=== PATIENT | female | born 1985 | race Caucasian/White ===

== ENCOUNTER 2019-08-03 17:22 | Day surgery (SDC) | payer BC ==
[2019-08-03] MEDS ORDERED: Ondansetron 4 MG/2 ML SDV IVPUSH ONE (18:26)
[2019-08-03] MEDS ORDERED: HYDROmorphone 0.5 MG/0.5 ML Syringe IVPUSH ONE ×2 (18:26→20:35)
[2019-08-03] MEDS ORDERED: Sodium Chloride 0.9% 1,000 ML IV SCH ×2 (18:30→23:00)
--- NOTE | 2019-08-03 18:36 | EDM.PDOC ---
ED HPI GENERAL MEDICAL PROBLEM - General Chief Complaint: Abdominal Pain Stated Complaint: VOMITING AND UPPER ABD PAIN Time Seen by Provider: 08/03/19 18:25 Source of Information: Reports: Patient, RN Notes Reviewed History Limitations: Reports: No Limitations - History of Present Illness INITIAL COMMENTS - FREE TEXT/NARRATIVE: Patient is a 33-year-old female who presents to the ED for the evaluation of periumbilical pain. She states that this pain started this morning, and started around her bellybutton, she says throughout the day it has slowly started to settle into the right lower abdomen, she notes that she has had nausea and vomiting this morning, she states that this relieves the pain for a small amount of time but then it comes straight back. She states that walking does increase the pain in her abdomen. She states that the pain is never really gone away has always been there kind of a dull ache with sharp stabs at times. The patient states she hasn't kept any food down today at all, her last meal was last night at around 7 PM. She tried to take some Pepto-Bismol this morning, but subsequently threw this up. The patient did have a good bowel movement this morning and also one diarrhea type bowel movement. The patient further notes that she is on her menses at this time. Of note the patient does have an iodine allergy, and when asked about this she states that she got a rash when she was a child and she also states that she's had a CT in the past done with contrast and she believes this caused no problems. The patient denies any chest pain or shortness of breath, and states she's had hot and cold flashes but has not really taken her temperature at home, she is afebrile at time of ER presentation. Patient denies any sort of abdominal surgeries. 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 History: Reports: Other DIRECTOR OF BROADCAST History: hx shoulder dystocia with 4th degree laceration with 1st baby Psychiatric History: Reports: Anxiety Endocrine/Metabolic History: Reports: Hypothyroidism - Past Surgical History Respiratory Surgical History: Reports: None Endocrine Surgical History: Reports: None Social & Family History - Family History Family Medical History: Noncontributory - Tobacco Use Smoking Status *Q: Never Smoker Second Hand Smoke Exposure: No - Caffeine Use Caffeine Use: Reports: Soda - Recreational Drug Use Recreational Drug Use: No ED ROS GENERAL - Review of Systems Review Of Systems: See Below Constitutional: Reports: Chills, Decreased Appetite, Other (hot flashes) Respiratory: Denies: Shortness of Breath Cardiovascular: Denies: Chest Pain Endocrine: Reports: No Symptoms GI/Abdominal: Reports: Abdominal Pain (Periumbilical and RLQ), Diarrhea, Nausea , Vomiting : Reports: No Symptoms Musculoskeletal: Reports: No Symptoms Skin: Reports: No Symptoms Neurological: Reports: No Symptoms Psychiatric: Reports: No Symptoms Hematologic/Lymphatic: Reports: No Symptoms ED EXAM, GI/ABD - Physical Exam Exam: See Below Exam Limited By: No Limitations General Appearance: Alert, WD/WN, No Apparent Distress Eyes: Bilateral: Normal Appearance Ears: Normal External Exam Nose: Normal Inspection Throat/Mouth: Normal Inspection Head: Atraumatic, Normocephalic Neck: Normal Inspection, Supple, Non-Tender, Full Range of Motion Respiratory/Chest: No Respiratory Distress, Lungs Clear, Normal Breath Sounds, No Accessory Muscle Use, Chest Non-Tender Cardiovascular: Normal Peripheral Pulses, Regular Rate, Rhythm, No Murmur GI/Abdominal Exam: Normal Bowel Sounds, Soft, No Organomegaly, No Distention, No Mass, Tender (McBurney point is positive. Pt has tenderness with palpation of RLQ) Extremities: Normal Inspection, Normal Capillary Refill Neurological: Alert, Oriented, Normal Cognition, No Motor/Sensory Deficits Psychiatric: Normal Affect, Normal Mood Skin Exam: Warm, Dry, Intact, Normal Color, No Rash Course - Vital Signs Last Recorded V/S: Last Vital Signs Temp 98.7 F 08/03/19 17:34 Pulse 73 08/03/19 17:34 Resp 12 08/03/19 17:34 BP 110/71 08/03/19 17:34 Pulse Ox 98 08/03/19 17:34 - Orders/Labs/Meds Orders: Active Orders 24 hr Category Date Time Status Admission Status [Patient Status] [ADT] Routine ADT 08/03/19 21:33 Ordered Notify Provider Consults [RC] ASDIRECTED Care 08/03/19 21:33 Ordered Consult to Physician [CONS] Urgent Cons 08/03/19 21:32 Ordered CULTURE URINE [RM] Routine Lab 08/03/19 19:59 Ordered Ertapenem [INVanz] 1 gm Med 08/03/19 21:31 Ordered Sodium Chloride 0.9% [Normal Saline] 50 ml IV ONETIME Sodium Chloride 0.9% [Normal Saline] 1,000 ml Med 08/03/19 18:30 Ordered IV ASDIRECTED Sodium Chloride 0.9% [Saline Flush] Med 08/03/19 19:30 Active 10 ml FLUSH ASDIRECTED Medication Orders Sodium Chloride (Normal Saline) 1,000 mls @ 999 mls/hr IV ASDIRECTED MATTEO Last Admin: 08/03/19 19:03 Dose: 999 mls/hr Ertapenem 1 gm/ Sodium (Chloride) 50 mls @ 100 mls/hr IV ONETIME ONE Stop: 08/03/19 22:00 Sodium Chloride (Saline Flush) 10 ml FLUSH ASDIRECTED [facility] Last Admin: 08/03/19 20:55 Dose: 10 ml Labs: Laboratory Tests 08/03/19 08/03/19 08/03/19 Range/Units 19:00 19:00 19:00 WBC 15.24 H (3.98-10.04) K/mm3 RBC 4.31 (3.98-5.22) M/mm3 Hgb 12.5 D (11.2-15.7) gm/dl Hct 37.4 (34.1-44.9) % MCV 86.8 (79.4-94.8) fl MCH 29.0 (25.6-32.2) pg MCHC 33.4 (32.2-35.5) g/dl RDW Std Deviation 39.2 (36.4-46.3) fL Plt Count 298 D (182-369) K/mm3 MPV 10.8 (9.4-12.3) fl Neutrophils % (Manual) 96 H (40-60) % Band Neutrophils % 0 (0-10) % Lymphocytes % (Manual) 3 L (20-40) % Atypical Lymphs % 0 % Monocytes % (Manual) 1 L (2-10) % Eosinophils % (Manual) 0 L (0.7-5.8) % Basophils % (Manual) 0 L (0.1-1.2) Platelet Estimate Adequate RBC Morph Comment Normal Sodium (136-145) mEq/L Potassium (3.5-5.1) mEq/L Chloride (98-107) mEq/L Carbon Dioxide (21-32) mEq/L Anion Gap (5-15) BUN (7-18) mg/dL Creatinine (0.55-1.02) mg/dL Est Cr Clr Drug Dosing mL/min Estimated GFR (MDRD) (>60) mL/min BUN/Creatinine Ratio (14-18) Glucose (74-106) mg/dL Calcium (8.5-10.1) mg/dL Total Bilirubin (0.2-1.0) mg/dL AST (15-37) U/L ALT (14-59) U/L Alkaline Phosphatase (46-116) U/L Total Protein (6.4-8.2) g/dl Albumin (3.4-5.0) g/dl Globulin gm/dL Albumin/Globulin Ratio (1-2) Urine Color Yellow (Yellow) Urine Appearance Slt cloudy H (Clear) Urine pH 8.5 H (5.0-8.0) Ur Specific [place] 1.020 (1.005-1.030) Urine Protein 1+ H (Negative) Urine Glucose (UA) Negative (Negative) Urine Ketones 2+ H (Negative) Urine Occult Blood 2+ H (Negative) Urine Nitrite Negative (Negative) Urine Bilirubin Negative (Negative) Urine Urobilinogen 1.0 (0.2-1.0) Ur Leukocyte Esterase Negative (Negative) Urine RBC 5-10 H (0-5) /hpf Urine WBC 10-20 H (0-5) /hpf Ur Squamous Epith Cells 10-20 H (0-5) /hpf Amorphous Sediment Many H (NOT SEEN) /hpf Urine Bacteria Few (FEW) /hpf Urine Mucus Many H (FEW) /hpf Urine HCG, Qual Negative (NEGATIVE) 08/03/19 Range/Units 19:00 WBC (3.98-10.04) K/mm3 RBC (3.98-5.22) M/mm3 Hgb (11.2-15.7) gm/dl Hct (34.1-44.9) % MCV (79.4-94.8) fl MCH (25.6-32.2) pg MCHC (32.2-35.5) g/dl RDW Std Deviation (36.4-46.3) fL Plt Count (182-369) K/mm3 MPV (9.4-12.3) fl Neutrophils % (Manual) (40-60) % Band Neutrophils % (0-10) % Lymphocytes % (Manual) (20-40) % Atypical Lymphs % % Monocytes % (Manual) (2-10) % Eosinophils % (Manual) (0.7-5.8) % Basophils % (Manual) (0.1-1.2) Platelet Estimate RBC Morph Comment Sodium 139 (136-145) mEq/L Potassium 4.0 (3.5-5.1) mEq/L Chloride 103 (98-107) mEq/L Carbon Dioxide 26 (21-32) mEq/L Anion Gap 14.0 (5-15) BUN 15 (7-18) mg/dL Creatinine 0.9 (0.55-1.02) mg/dL Est Cr Clr Drug Dosing 91.18 mL/min Estimated GFR (MDRD) > 60 (>60) mL/min BUN/Creatinine Ratio 16.7 (14-18) Glucose 140 H (74-106) mg/dL Calcium 9.3 (8.5-10.1) mg/dL Total Bilirubin 0.5 (0.2-1.0) mg/dL AST 27 (15-37) U/L ALT 68 H (14-59) U/L Alkaline Phosphatase 70 (46-116) U/L Total Protein 7.8 (6.4-8.2) g/dl Albumin 4.1 (3.4-5.0) g/dl Globulin 3.7 gm/dL Albumin/Globulin Ratio 1.1 (1-2) Urine Color (Yellow) Urine Appearance (Clear) Urine pH (5.0-8.0) Ur Specific [place] (1.005-1.030) Urine Protein (Negative) Urine Glucose (UA) (Negative) Urine Ketones (Negative) Urine Occult Blood (Negative) Urine Nitrite (Negative) Urine Bilirubin (Negative) Urine Urobilinogen (0.2-1.0) Ur Leukocyte Esterase (Negative) Urine RBC (0-5) /hpf Urine WBC (0-5) /hpf Ur Squamous Epith Cells (0-5) /hpf Amorphous Sediment (NOT SEEN) /hpf Urine Bacteria (FEW) /hpf Urine Mucus (FEW) /hpf Urine HCG, Qual (NEGATIVE) Meds: Medications Generic Name Dose Route Start Last Admin Trade Name Freq PRN Reason Stop Dose Admin Sodium Chloride 1,000 mls @ 999 mls/hr 08/03/19 18:30 08/03/19 19:03 Normal Saline IV 999 mls/hr ASDIRECTED MATTEO Administration Ertapenem 1 gm/ Sodium 50 mls @ 100 mls/hr 08/03/19 21:31 Chloride IV 08/03/19 22:00 ONETIME ONE Sodium Chloride 10 ml 08/03/19 19:30 08/03/19 20:55 Saline Flush FLUSH 10 ml ASDIRECTED MATTEO Administration Discontinued Medications Generic Name Dose Route Start Last Admin Trade Name Freq PRN Reason Stop Dose Admin Diatrizoate Meglum/Diatrizoate Sod 120 ml 08/03/19 19:27 08/03/19 20:55 Gastrografin 37% PO 08/03/19 19:28 120 ml ONETIME ONE Administration Diphenhydramine HCl 25 mg 08/03/19 20:32 08/03/19 20:43 Benadryl IVPUSH 08/03/19 20:33 25 mg ONETIME ONE Administration Hydromorphone HCl 0.5 mg 08/03/19 18:26 08/03/19 19:04 Dilaudid IVPUSH 08/03/19 18:27 0.5 mg ONETIME ONE Administration Hydromorphone HCl 0.5 mg 08/03/19 20:35 08/03/19 20:42 Dilaudid IVPUSH 08/03/19 20:36 0.5 mg ONETIME ONE Administration Iopamidol 100 ml 08/03/19 19:27 08/03/19 20:55 Isovue-300 (61%) IVPUSH 08/03/19 19:28 100 ml ONETIME ONE Administration Ondansetron HCl 4 mg 08/03/19 18:26 08/03/19 19:03 Zofran IVPUSH 08/03/19 18:27 4 mg ONETIME ONE Administration - Re-Assessments/Exams Free Text/Narrative Re-Assessment/Exam: 08/03/19 18:30 Patient presents to the ED for the evaluation of right lower abdominal pain. Did order an abdomen pelvis CT with contrast, CBC, CMP, UA, IV to be placed with IV fluids, 4 mg Zofran, and 0.5 mg Dilaudid for initial management, her symptoms are suspicious in nature for an appendicitis. 08/03/19 19:58 Patient's white count is elevated at 15,000, her urinalysis is contaminated due to the menses fluid, however she has not having any sort of urinary symptoms, UTI is lower on the differential at this time. Will send the urine for culture to make sure that it is in fact just contaminated. 08/03/19 20:42 Patient's mother is present in the room now, and states that the patient has never had a CT done with contrast, and still has an allergy to iodine, the patient is worried that she might have reaction, I did order 25 mg Benadryl for this. 08/03/19 21:[address] is done, and demonstrates an enlarged appendix with surrounding inflammatory change compatible with appendicitis. Several calcified gallstones , and other incidental findings better not acute at this time. Dr. Peace our general surgeon occupational safety specialist was made aware of the patient's status, and he requests 1 g Invanz be given and the patient be admitted for observation overnight so he can perform surgery in the morning. Patient be kept nothing by mouth, given IV maintenance fluids, and bridge orders will be written. Departure - Departure Time of Disposition: 21:39 Disposition: Refer to Observation Condition: Fair Clinical Impression: Appendicitis Qualifiers: Appendicitis type: acute appendicitis Acute appendicitis type: with localized peritonitis Appendicitis gangrene presence: without gangrene Appendicitis perforation presence: without perforation Appendicitis abscess presence: without abscess Qualified Code(s): K35.30 - Acute appendicitis with localized peritonitis, without perforation or gangrene - Discharge Information *PRESCRIPTION DRUG MONITORING PROGRAM REVIEWED*: No *COPY OF PRESCRIPTION DRUG MONITORING REPORT IN PATIENT LISA: No Referrals: Tonya Cárdenas NP [Primary Care Provider] - Forms: ED Department Discharge - My Orders Last 24 Hours: My Active Orders 08/03/19 18:30 Sodium Chloride 0.9% [Normal Saline] 1,000 ml IV ASDIRECTED 08/03/19 19:30 Sodium Chloride 0.9% [Saline Flush] 10 ml FLUSH ASDIRECTED 08/03/19 19:59 CULTURE URINE [RM] Routine 08/03/19 21:31 Ertapenem [INVanz] 1 gm Sodium Chloride 0.9% [Normal Saline] 50 ml IV ONETIME 08/03/19 21:32 Consult to Physician [CONS] Urgent 08/03/19 21:33 Admission Status [Patient Status] [ADT] Routine Notify Provider Consults [RC] ASDIRECTED - Assessment/Plan Last 24 Hours: My Active Orders 08/03/19 18:30 Sodium Chloride 0.9% [Normal Saline] 1,000 ml IV ASDIRECTED 08/03/19 19:30 Sodium Chloride 0.9% [Saline Flush] 10 ml FLUSH ASDIRECTED 08/03/19 19:59 CULTURE URINE [RM] Routine 08/03/19 21:31 Ertapenem [INVanz] 1 gm Sodium Chloride 0.9% [Normal Saline] 50 ml IV ONETIME 08/03/19 21:32 Consult to Physician [CONS] Urgent 08/03/19 21:33 Admission Status [Patient Status] [ADT] Routine Notify Provider Consults [RC] ASDIRECTED
[2019-08-03] MEDS ORDERED: Diatrizoate Meglumine/Diatrizoate Sodium 37% 120 ML Bottle PO ONE (19:27)
[2019-08-03] MEDS ORDERED: Iopamidol 612 MG/ML 100 ML Bottle IVPUSH ONE (19:27)
[2019-08-03] MEDS ORDERED: Sodium Chloride 0.9% 10 ML Syringe FLUSH SCH (19:30)
[2019-08-03] MEDS ORDERED: diphenhydrAMINE 50 MG/ML SDV IVPUSH ONE (20:32)
--- NOTE | 2019-08-03 21:14 | CT ---
CT abdomen and pelvis Technique: Multiple axial sections were obtained from above the dome of the diaphragm inferiorly through the pubic symphysis. Intravenous and oral contrast was utilized. Delayed images were obtained through the bladder. Findings: Appendix is enlarged and shows surrounding inflammatory change. Findings are compatible with appendicitis. Visualized lung bases show nothing acute. Liver contains no focal abnormality. Gallbladder contains several calcified gallstones. Spleen appears within normal limits. Adrenal glands show no nodule. Pancreas is within normal limits. Kidneys show symmetric contrast enhancement. Small cortical abnormality is seen within the lower right kidney most likely representing minimal cortical cyst measuring 8 mm. Aorta shows no aneurysm. No retroperitoneal adenopathy or mesenteric abnormalities are seen. No pelvic mass or adenopathy is seen. Delayed images: Postcontrast within the distal ureters and bladder. Bone window settings were reviewed to appear within normal limits for the patient's age. Impression: 1. Enlarged appendix with surrounding inflammatory change compatible with appendicitis. 2. Several calcified gallstones. 3. Other findings as noted above which are felt to be incidental. Diagnostic code #5
[2019-08-03] MEDS ORDERED: Ertapenem 1 GM in Sodium Chloride 0.9% 50 ML IV ONE (21:31)
[2019-08-03] MEDS ORDERED: Sodium Chloride 0.9% 1,000 ML IV ONE (21:41)
[2019-08-03] MEDS: HYDROmorphone 1 MG/ML Syringe IVPUSH PRN (23:30)
[2019-08-03] MEDS: Ondansetron 4 MG/2 ML SDV IVPUSH PRN (23:32)
[2019-08-04] MEDS: HYDROmorphone 1 MG/ML Syringe IVPUSH PRN (04:43)
[2019-08-04] MEDS: Ondansetron 4 MG/2 ML SDV IVPUSH PRN (04:47)
--- NOTE | 2019-08-04 04:57 | PCM.PREANE ---
Preanesthetic Assessment - Anesthesia/Transfusion/Family Hx Anesthesia History: Prior Anesthesia Without Reaction Family History of Anesthesia Reaction: No Transfusion History: No Prior Transfusion(s) Intubation History: Unknown - Review of Systems General: No Symptoms Pulmonary: No Symptoms (Asthma: last used albuterol inhaler-one year ago) Cardiovascular: No Symptoms Gastrointestinal: Nausea, Vomiting (yesterday) Neurological: No Symptoms (motion sickness, vertigo), Headache Other: Reports: Easy Bruising, Thyroid Problems (hypothyroid), Anxiety - Physical Assessment NPO Status Date: 08/03/19 NPO Status Time: 20:55 Vital Signs: Last Vital Signs Temp 36.7 C 08/03/19 22:42 Pulse 82 08/03/19 22:42 Resp 16 08/03/19 22:42 BP 108/77 08/03/19 22:42 Pulse Ox 100 08/03/19 22:42 Height: 1.75 m Weight: 79.333 kg ASA Class: 2E Mental Status: Alert & Oriented x3 Airway Class: Mallampati = 2 Dentition: Reports: Normal Dentition, Caries Thyro-Mental Finger Breadths: 3 Mouth Opening Finger Breadths: 3 ROM/Head Extension: Full Lungs: Clear to Auscultation, Normal Respiratory Effort Cardiovascular: Regular Rate, Regular Rhythm, No Murmurs - Lab Values: Laboratory Last Values WBC 15.24 K/mm3 (3.98-10.04) H 08/03/19 19:00 RBC 4.31 M/mm3 (3.98-5.22) 08/03/19 19:00 Hgb 12.5 gm/dl (11.2-15.7) D 08/03/19 19:00 Hct 37.4 % (34.1-44.9) 08/03/19 19:00 MCV 86.8 fl (79.4-94.8) 08/03/19 19:00 MCH 29.0 pg (25.6-32.2) 08/03/19 19:00 MCHC 33.4 g/dl (32.2-35.5) 08/03/19 19:00 RDW Std Deviation 39.2 fL (36.4-46.3) 08/03/19 19:00 Plt Count 298 K/mm3 (182-369) D 08/03/19 19:00 MPV 10.8 fl (9.4-12.3) 08/03/19 19:00 Neutrophils % (Manual) 96 % (40-60) H 08/03/19 19:00 Band Neutrophils % 0 % (0-10) 08/03/19 19:00 Lymphocytes % (Manual) 3 % (20-40) L 08/03/19 19:00 Atypical Lymphs % 0 % 08/03/19 19:00 Monocytes % (Manual) 1 % (2-10) L 08/03/19 19:00 Eosinophils % (Manual) 0 % (0.7-5.8) L 08/03/19 19:00 Basophils % (Manual) 0 (0.1-1.2) L 08/03/19 19:00 Platelet Estimate Adequate 08/03/19 19:00 RBC Morph Comment Normal 08/03/19 19:00 Sodium 139 mEq/L (136-145) 08/03/19 19:00 Potassium 4.0 mEq/L (3.5-5.1) 08/03/19 19:00 Chloride 103 mEq/L (98-107) 08/03/19 19:00 Carbon Dioxide 26 mEq/L (21-32) 08/03/19 19:00 Anion Gap 14.0 (5-15) 08/03/19 19:00 BUN 15 mg/dL (7-18) 08/03/19 19:00 Creatinine 0.9 mg/dL (0.55-1.02) 08/03/19 19:00 Est Cr Clr Drug Dosing 91.18 mL/min 08/03/19 19:00 Estimated GFR (MDRD) > 60 mL/min (>60) 08/03/19 19:00 BUN/Creatinine Ratio 16.7 (14-18) 08/03/19 19:00 Glucose 140 mg/dL (74-106) H 08/03/19 19:00 Calcium 9.3 mg/dL (8.5-10.1) 08/03/19 19:00 Total Bilirubin 0.5 mg/dL (0.2-1.0) 08/03/19 19:00 AST 27 U/L (15-37) 08/03/19 19:00 ALT 68 U/L (14-59) H 08/03/19 19:00 Alkaline Phosphatase 70 U/L (46-116) 08/03/19 19:00 Total Protein 7.8 g/dl (6.4-8.2) 08/03/19 19:00 Albumin 4.1 g/dl (3.4-5.0) 08/03/19 19:00 Globulin 3.7 gm/dL 08/03/19 19:00 Albumin/Globulin Ratio 1.1 (1-2) 08/03/19 19:00 Urine Color Yellow (Yellow) 08/03/19 19:00 Urine Appearance Slt cloudy (Clear) H 08/03/19 19:00 Urine pH 8.5 (5.0-8.0) H 08/03/19 19:00 Ur Specific [place] 1.020 (1.005-1.030) 08/03/19 19:00 Urine Protein 1+ (Negative) H 08/03/19 19:00 Urine Glucose (UA) Negative (Negative) 08/03/19 19:00 Urine Ketones 2+ (Negative) H 08/03/19 19:00 Urine Occult Blood 2+ (Negative) H 08/03/19 19:00 Urine Nitrite Negative (Negative) 08/03/19 19:00 Urine Bilirubin Negative (Negative) 08/03/19 19:00 Urine Urobilinogen 1.0 (0.2-1.0) 08/03/19 19:00 Ur Leukocyte Esterase Negative (Negative) 08/03/19 19:00 Urine RBC 5-10 /hpf (0-5) H 08/03/19 19:00 Urine WBC 10-20 /hpf (0-5) H 08/03/19 19:00 Ur Squamous Epith Cells 10-20 /hpf (0-5) H 08/03/19 19:00 Amorphous Sediment Many /hpf (NOT SEEN) H 08/03/19 19:00 Urine Bacteria Few /hpf (FEW) 08/03/19 19:00 Urine Mucus Many /hpf (FEW) H 08/03/19 19:00 Urine HCG, Qual Negative (NEGATIVE) 08/03/19 19:00 Above labs reviewed and noted and within acceptable ranges to proceed with scheduled procedure. - Allergies Allergies/Adverse Reactions: Allergies Allergy/AdvReac Type Severity Reaction Status Date / Time amoxicillin Allergy Rash Verified 08/03/19 17:34 iodine Allergy Rash Verified 08/03/19 17:34 - Anesthesia Plan Pre-Op Medication Ordered: None - Acknowledgements Anesthesia Type Planned: General Anesthesia Pt an Appropriate Candidate for the Planned Anesthesia: Yes Alternatives and Risks of Anesthesia Discussed w Pt/Guardian: Yes Pt/Guardian Understands and Agrees with Anesthesia Plan: Yes PreAnesthesia Questionnaire HEENT History: Reports: Other (See Below) Other HEENT History: wears glasses Respiratory History: Reports: Asthma 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 OB/BYN History: hx shoulder dystocia with 4th degree laceration with 1st baby Neurological History: Reports: Vertigo Psychiatric History: Reports: Anxiety Endocrine/Metabolic History: Reports: Hypothyroidism - Past Surgical History HEENT Surgical History: Reports: Oral Surgery Respiratory Surgical History: Reports: None Female Surgical History: Reports: Section Endocrine Surgical History: Reports: None Musculoskeletal Surgical History: Reports: Arthroscopic Knee, Other (See Below) Other Musculoskeletal Surgeries/Procedures:: Right knee surgery - SUBSTANCE USE Smoking Status *Q: Never Smoker Second Hand Smoke Exposure: No Recreational Drug Use History: No - HOME MEDS Home Medications: Home Meds Albuterol [IJP: Ventolin HFA] 1 puff INH .TWICE DAILY PRN 03/18/16 [History] Escitalopram [Lexapro] 20 mg PO BEDTIME 08/03/19 [History] Isomethept/Dichlphn/Acetaminop [Bzeicykmsj-Mjknyjndbk-Bgucrelg] 2 cap PO Q4HR PRN 08/03/19 [History] Promethazine [Phenergan] 1 tab PO Q6HR PRN 08/03/19 [History] Thyroid [[place] Thyroid] 120 mg PO DAILY 08/03/19 [History] hydrOXYzine HCl [Hydroxyzine HCl] 50 mg PO Q6HR PRN 08/03/19 [History] valACYclovir [Valtrex] 1,000 mg PO BID PRN 08/03/19 [History] - CURRENT (IN HOUSE) MEDS Current Meds: Current Medications Hydromorphone HCl (Dilaudid) 1 mg IVPUSH Q4H PRN PRN Reason: Pain Last Admin: 08/04/19 04:43 Dose: 1 mg Sodium Chloride (Normal Saline) 1,000 mls @ 125 mls/hr IV ASDIRECTED MATTEO Last Admin: 08/03/19 23:30 Dose: 125 mls/hr Ondansetron HCl (Zofran) 4 mg IVPUSH Q8H PRN PRN Reason: Nausea Last Admin: 08/04/19 04:47 Dose: 4 mg Sodium Chloride (Saline Flush) 10 ml FLUSH ASDIRECTED [facility] Last Admin: 08/03/19 20:55 Dose: 10 ml Discontinued Medications Diatrizoate Meglum/Diatrizoate Sod (Gastrografin 37%) 120 ml PO ONETIME ONE Stop: 08/03/19 19:28 Last Admin: 08/03/19 20:55 Dose: 120 ml Diphenhydramine HCl (Benadryl) 25 mg IVPUSH ONETIME ONE Stop: 08/03/19 20:33 Last Admin: 08/03/19 20:43 Dose: 25 mg Hydromorphone HCl (Dilaudid) 0.5 mg IVPUSH ONETIME ONE Stop: 08/03/19 18:27 Last Admin: 08/03/19 19:04 Dose: 0.5 mg Hydromorphone HCl (Dilaudid) 0.5 mg IVPUSH ONETIME ONE Stop: 08/03/19 20:36 Last Admin: 08/03/19 20:42 Dose: 0.5 mg Sodium Chloride (Normal Saline) 1,000 mls @ 999 mls/hr IV ASDIRECTED [facility] Last Admin: 08/03/19 19:03 Dose: 999 mls/hr Ertapenem 1 gm/ Sodium (Chloride) 50 mls @ 100 mls/hr IV ONETIME ONE Stop: 08/03/19 22:00 Last Admin: 08/04/19 00:04 Dose: 100 mls/hr Sodium Chloride (Normal Saline) 1,000 mls @ 125 mls/hr IV ONETIME ONE Stop: 08/04/19 05:40 Last Admin: 08/04/19 00:13 Dose: Not Given Iopamidol (Isovue-300 (61%)) 100 ml IVPUSH ONETIME ONE Stop: 08/03/19 19:28 Last Admin: 08/03/19 20:55 Dose: 100 ml Ondansetron HCl (Zofran) 4 mg IVPUSH ONETIME ONE Stop: 08/03/19 18:27 Last Admin: 08/03/19 19:03 Dose: 4 mg
[2019-08-04 05:10] VITALS: PULSE 84
[2019-08-04] MEDS ORDERED: Ketorolac 30 MG/ML SDV ONE (05:10)
[2019-08-04] MEDS ORDERED: Lidocaine 1% 6 ML ONE (05:10)
[2019-08-04] MEDS ORDERED: Lactated Ringers 2,000 ML ONE (05:10)
[2019-08-04] MEDS ORDERED: Rocuronium 50 MG/5 ML Vial ONE (05:10)
[2019-08-04] MEDS ORDERED: Dexamethasone 4 MG/ML 5 ML MDV ONE (05:10)
[2019-08-04] MEDS ORDERED: Ondansetron 4 MG/2 ML SDV ONE (05:10)
[2019-08-04] MEDS ORDERED: HYDROmorphone 0.5 MG/0.5 ML Syringe ONE (05:10)
[2019-08-04] MEDS ORDERED: fentaNYL 250 MCG/5 ML SDV ONE (05:11)
[2019-08-04] MEDS ORDERED: Propofol 200 MG/20 ML SDV ONE (05:11)
[2019-08-04] MEDS ORDERED: Midazolam 1 MG/ML 2 ML SDV ONE (05:11)
[2019-08-04] MEDS ORDERED: Scopolamine 1.5 MG Transdermal Patch TRDERM ONE (05:32)
--- NOTE | 2019-08-04 06:05 | PCM.HP.2 ---
H&P History of Present Illness - General Date of Service: 08/04/19 Admit Problem/Dx: Admission Diagnosis/Problem Admission Diagnosis/Problem Appendicitis Source of Information: Patient History Limitations: Reports: No Limitations - History of Present Illness Initial Comments - Free Text/Narative: Patient presented to the ED for abdominal pain. Pain started at 11am 08/02, periumbilical initially then RLQ. SHarp pain, associated with nausea and emesis. Emesis non bloody. Patient had anorexia as well. Nothing made pain better or worse. Patient denied any fevers or chills. Had prior C section. Came to the ED where WBC was [address] confirmed appendicitis. Onset of Symptoms: Reports: Sudden Symptom Onset Date: 08/02/19 Symptom Onset Time: 11:30 Duration of Symptoms: Reports: Getting Worse Location: Reports: Abdomen (RLQ) Quality: Reports: Sharp Severity: Severe Improves with: Reports: None Worsens with: Reports: None Associated Symptoms: Reports: Loss of Appetite, Nausea/Vomiting Middle Abdominal Pain Score (Numeric/FACES): 8 - Related Data Allergies/Adverse Reactions: Allergies Allergy/AdvReac Type Severity Reaction Status Date / Time amoxicillin Allergy Rash Verified 08/03/19 17:34 iodine Allergy Rash Verified 08/03/19 17:34 Home Medications: Home Meds Albuterol [IJP: Ventolin HFA] 1 puff INH .TWICE DAILY PRN 03/18/16 [History] Escitalopram [Lexapro] 20 mg PO BEDTIME 08/03/19 [History] Isomethept/Dichlphn/Acetaminop [Cfmwtypylq-Tzoxvkovga-Uisowwne] 2 cap PO Q4HR PRN 08/03/19 [History] Promethazine [Phenergan] 1 tab PO Q6HR PRN 08/03/19 [History] Thyroid [[place] Thyroid] 120 mg PO DAILY 08/03/19 [History] hydrOXYzine HCl [Hydroxyzine HCl] 50 mg PO Q6HR PRN 08/03/19 [History] valACYclovir [Valtrex] 1,000 mg PO BID PRN 08/03/19 [History] Past Medical History HEENT History: Reports: Other (See Below) Other HEENT History: wears glasses Respiratory History: Reports: Asthma 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 OB/BYN History: hx shoulder dystocia with 4th degree laceration with 1st baby Neurological History: Reports: Vertigo Psychiatric History: Reports: Anxiety Endocrine/Metabolic History: Reports: Hypothyroidism - Past Surgical History HEENT Surgical History: Reports: Oral Surgery Respiratory Surgical History: Reports: None Female Surgical History: Reports: Section Endocrine Surgical History: Reports: None Musculoskeletal Surgical History: Reports: Arthroscopic Knee, Other (See Below) Other Musculoskeletal Surgeries/Procedures:: Right knee surgery Social & Family History - Family History Family Medical History: Noncontributory - Tobacco Use Smoking Status *Q: Never Smoker Second Hand Smoke Exposure: No - Caffeine Use Caffeine Use: Reports: None - Recreational Drug Use Recreational Drug Use: No H&P Review of Systems - Review of Systems: Review Of Systems: See Below General: Reports: Decreased Appetite HEENT: Reports: No Symptoms Pulmonary: Reports: No Symptoms Cardiovascular: Reports: No Symptoms Gastrointestinal: Reports: Abdominal Pain, Vomiting Genitourinary: Reports: No Symptoms Musculoskeletal: Reports: No Symptoms Skin: Reports: No Symptoms Psychiatric: Reports: No Symptoms Neurological: Reports: No Symptoms Hematologic/Lymphatic: Reports: No Symptoms Immunologic: Reports: No Symptoms Exam - Exam Exam: See Below - Vital Signs Vital Signs: Last Vital Signs Temp 98.1 F 08/04/19 04:50 Pulse 84 08/04/19 04:50 Resp 18 08/04/19 04:50 BP 112/61 08/04/19 04:50 Pulse Ox 96 08/04/19 04:50 Weight: 79.333 kg - Exam General: Alert, Oriented, Cooperative, Mild Distress HEENT: Conjunctiva Clear Lungs: Clear to Auscultation, Normal Respiratory Effort Cardiovascular: Regular Rate, Regular Rhythm, Normal S1, Normal S2 GI/Abdominal Exam: Soft, No Distention, No Mass, Tender (RLQ) - Patient Data Lab Results Last 24 hrs: Laboratory Results - last 24 hr 08/03/19 08/03/19 08/03/19 Range/Units 19:00 19:00 19:00 WBC 15.24 H (3.98-10.04) K/mm3 RBC 4.31 (3.98-5.22) M/mm3 Hgb 12.5 D (11.2-15.7) gm/dl Hct 37.4 (34.1-44.9) % MCV 86.8 (79.4-94.8) fl MCH 29.0 (25.6-32.2) pg MCHC 33.4 (32.2-35.5) g/dl RDW Std Deviation 39.2 (36.4-46.3) fL Plt Count 298 D (182-369) K/mm3 MPV 10.8 (9.4-12.3) fl Neutrophils % (Manual) 96 H (40-60) % Band Neutrophils % 0 (0-10) % Lymphocytes % (Manual) 3 L (20-40) % Atypical Lymphs % 0 % Monocytes % (Manual) 1 L (2-10) % Eosinophils % (Manual) 0 L (0.7-5.8) % Basophils % (Manual) 0 L (0.1-1.2) Platelet Estimate Adequate RBC Morph Comment Normal Sodium (136-145) mEq/L Potassium (3.5-5.1) mEq/L Chloride (98-107) mEq/L Carbon Dioxide (21-32) mEq/L Anion Gap (5-15) BUN (7-18) mg/dL Creatinine (0.55-1.02) mg/dL Est Cr Clr Drug Dosing mL/min Estimated GFR (MDRD) (>60) mL/min BUN/Creatinine Ratio (14-18) Glucose (74-106) mg/dL Calcium (8.5-10.1) mg/dL Total Bilirubin (0.2-1.0) mg/dL AST (15-37) U/L ALT (14-59) U/L Alkaline Phosphatase (46-116) U/L Total Protein (6.4-8.2) g/dl Albumin (3.4-5.0) g/dl Globulin gm/dL Albumin/Globulin Ratio (1-2) Urine Color Yellow (Yellow) Urine Appearance Slt cloudy H (Clear) Urine pH 8.5 H (5.0-8.0) Ur Specific [place] 1.020 (1.005-1.030) Urine Protein 1+ H (Negative) Urine Glucose (UA) Negative (Negative) Urine Ketones 2+ H (Negative) Urine Occult Blood 2+ H (Negative) Urine Nitrite Negative (Negative) Urine Bilirubin Negative (Negative) Urine Urobilinogen 1.0 (0.2-1.0) Ur Leukocyte Esterase Negative (Negative) Urine RBC 5-10 H (0-5) /hpf Urine WBC 10-20 H (0-5) /hpf Ur Squamous Epith Cells 10-20 H (0-5) /hpf Amorphous Sediment Many H (NOT SEEN) /hpf Urine Bacteria Few (FEW) /hpf Urine Mucus Many H (FEW) /hpf Urine HCG, Qual Negative (NEGATIVE) 08/03/19 Range/Units 19:00 WBC (3.98-10.04) K/mm3 RBC (3.98-5.22) M/mm3 Hgb (11.2-15.7) gm/dl Hct (34.1-44.9) % MCV (79.4-94.8) fl MCH (25.6-32.2) pg MCHC (32.2-35.5) g/dl RDW Std Deviation (36.4-46.3) fL Plt Count (182-369) K/mm3 MPV (9.4-12.3) fl Neutrophils % (Manual) (40-60) % Band Neutrophils % (0-10) % Lymphocytes % (Manual) (20-40) % Atypical Lymphs % % Monocytes % (Manual) (2-10) % Eosinophils % (Manual) (0.7-5.8) % Basophils % (Manual) (0.1-1.2) Platelet Estimate RBC Morph Comment Sodium 139 (136-145) mEq/L Potassium 4.0 (3.5-5.1) mEq/L Chloride 103 (98-107) mEq/L Carbon Dioxide 26 (21-32) mEq/L Anion Gap 14.0 (5-15) BUN 15 (7-18) mg/dL Creatinine 0.9 (0.55-1.02) mg/dL Est Cr Clr Drug Dosing 91.18 mL/min Estimated GFR (MDRD) > 60 (>60) mL/min BUN/Creatinine Ratio 16.7 (14-18) Glucose 140 H (74-106) mg/dL Calcium 9.3 (8.5-10.1) mg/dL Total Bilirubin 0.5 (0.2-1.0) mg/dL AST 27 (15-37) U/L ALT 68 H (14-59) U/L Alkaline Phosphatase 70 (46-116) U/L Total Protein 7.8 (6.4-8.2) g/dl Albumin 4.1 (3.4-5.0) g/dl Globulin 3.7 gm/dL Albumin/Globulin Ratio 1.1 (1-2) Urine Color (Yellow) Urine Appearance (Clear) Urine pH (5.0-8.0) Ur Specific [place] (1.005-1.030) Urine Protein (Negative) Urine Glucose (UA) (Negative) Urine Ketones (Negative) Urine Occult Blood (Negative) Urine Nitrite (Negative) Urine Bilirubin (Negative) Urine Urobilinogen (0.2-1.0) Ur Leukocyte Esterase (Negative) Urine RBC (0-5) /hpf Urine WBC (0-5) /hpf Ur Squamous Epith Cells (0-5) /hpf Amorphous Sediment (NOT SEEN) /hpf Urine Bacteria (FEW) /hpf Urine Mucus (FEW) /hpf Urine HCG, Qual (NEGATIVE) Result Diagrams: 08/03/19 19:00 08/03/19 19:00 Problem List Initiated/Reviewed/Updated: No Orders Last 24hrs: Active Orders 24 hr Category Date Time Status Admission Status [Patient Status] [ADT] Routine ADT 08/03/19 21:33 Active Activity as Tolerated [RC] QSHIFT Care 08/03/19 22:59 Active Notify Provider Consults [RC] ASDIRECTED Care 08/03/19 21:33 Active Consult to Physician [CONS] Urgent Cons 08/03/19 21:32 Active Nothing per Oral After Midnight Diet [DIET] Diet 08/04/19 Breakfast Active CULTURE URINE [RM] Routine Lab 08/03/19 19:00 Received HYDROmorphone [Dilaudid] Med 08/03/19 22:57 Active 1 mg IVPUSH Q4H PRN Ondansetron [Zofran] Med 08/03/19 22:56 Active 4 mg IVPUSH Q8H PRN Remove Patch Med 08/07/19 05:45 Active 1 ea TRDERM Q72H Sodium Chloride 0.9% [Normal Saline] 1,000 ml Med 08/03/19 23:00 Active IV ASDIRECTED Sodium Chloride 0.9% [Saline Flush] Med 08/03/19 19:30 Active 10 ml FLUSH ASDIRECTED Code Status [Resuscitation Status] Routine Resus Stat 08/03/19 23:00 Ordered Medication Orders Hydromorphone HCl (Dilaudid) 1 mg IVPUSH Q4H PRN PRN Reason: Pain Last Admin: 08/04/19 04:43 Dose: 1 mg Admin: 08/03/19 23:30 Dose: 1 mg Sodium Chloride (Normal Saline) 1,000 mls @ 125 mls/hr IV ASDIRECTED [facility] Last Admin: 08/03/19 23:30 Dose: 125 mls/hr Miscellaneous Information (Remove Patch) 1 ea TRDERM Q72H [facility] Stop: 08/07/19 05:46 Ondansetron HCl (Zofran) 4 mg IVPUSH Q8H PRN PRN Reason: Nausea Last Admin: 08/04/19 04:47 Dose: 4 mg Admin: 08/03/19 23:32 Dose: 4 mg Sodium Chloride (Saline Flush) 10 ml FLUSH ASDIRECTED [facility] Last Admin: 08/03/19 20:55 Dose: 10 ml Assessment/Plan Comment:: Patient has acute appendicitis. Will plans for laparoscopic appendectomy, possible open. Risks, benefits, and alternatives discussed with the patient and she agreed to proceed with the procedure. Informed consent obtained.
[2019-08-04] MEDS ORDERED: diphenhydrAMINE 50 MG/ML SDV ONE (06:06)
[2019-08-04] MEDS ORDERED: HYDROmorphone 0.5 MG/0.5 ML Syringe IVPUSH PRN (06:15)
[2019-08-04] MEDS ORDERED: Phenylephrine 1 MG in Sodium Chloride 0.9% 10 ML IV SCH (06:15)
[2019-08-04] MEDS ORDERED: fentaNYL 100 MCG/2 ML SDV IVPUSH PRN (06:15)
[2019-08-04] MEDS ORDERED: Ondansetron 4 MG/2 ML SDV IVPUSH PRN (06:15)
[2019-08-04] MEDS ORDERED: ePHEDrine 50 MG/ML SDV IVPUSH PRN (06:15)
[2019-08-04] MEDS: Lidocaine 1% 30 ML SDV ONE ×2 (06:15→06:32)
[2019-08-04] MEDS ORDERED: Albuterol 0.083% 2.5 MG/3 ML Neb Soln NEB PRN (06:15)
[2019-08-04] MEDS ORDERED: Neostigmine Methylsulfate 1 MG/ML 5 ML Syringe ONE (06:32)
--- NOTE | 2019-08-04 07:46 | PCM.POSTAN ---
POST ANESTHESIA ASSESSMENT - MENTAL STATUS Mental Status: Alert - VITAL SIGNS Vital Signs: Last Vital Signs Temp 98.9f 08/04/19 07:27 Pulse 100 08/04/19 07:27 Resp 16 08/04/19 07:27 BP 100/54 08/04/19 07:27 Pulse Ox 95 08/04/19 07:27 - RESPIRATORY Respiratory Status: Respiratory Rate WNL, Airway Patent, O2 Saturation Stable - CARDIOVASCULAR CV Status: Pulse Rate WNL, Blood Pressure Stable - GASTROINTESTINAL GI Status: No Symptoms - POST OP HYDRATION Hydration Status: Adequate & Stable
--- NOTE | 2019-08-04 08:00 | PCM48HPAN ---
Post Anesthesia Note - EVALUATION WITHIN 48HRS OF ANESTHETIC Vital Signs in Normal Range: Yes Patient Participated in Evaluation: Yes Respiratory Function Stable: Yes Airway Patent: Yes Cardiovascular Function Stable: Yes Hydration Status Stable: Yes Pain Control Satisfactory: Yes Nausea and Vomiting Control Satisfactory: Yes Mental Status Recovered: Yes Vital Signs: Last Vital Signs Temp 37.2 C 08/04/19 07:27 Pulse 84 08/04/19 04:50 Resp 12 08/04/19 07:50 BP 102/56 L 08/04/19 07:50 Pulse Ox 93 L 08/04/19 07:50
[2019-08-04 08:19] VITALS: BP 106/65
--- NOTE | 2019-08-04 10:35 | OR ---
DATE OF OPERATION: 08/04/2019 SURGEON: Almaz Peace MD PREOPERATIVE DIAGNOSIS: Acute appendicitis. POSTOPERATIVE DIAGNOSIS: Acute appendicitis. OPERATION PERFORMED: Laparoscopic appendectomy. ESTIMATED BLOOD LOSS: 5 mL. FLUIDS: 1500. URINE OUTPUT: Not recorded. INDICATIONS AND CONSENT: The patient is a 33-year-old female who developed right lower quadrant pain about 1 day ago. The pain was associated with nausea and vomiting, localized in the right lower quadrant. The patient presented to the emergency department where she underwent a CT scan as well as labs. White count was 15. CT scan confirmed acute appendicitis. The patient was given a dose of antibiotics and admitted for possible appendectomy. I evaluated the patient this morning and confirmed the findings, and I offered the patient laparoscopic possible open appendectomy. The patient during this discussion had discussed risks, benefits, and options for the patient including antibiotics, open or laparoscopic appendectomy, and the risks discussed include bleeding injury to the intra- abdominal structure including the bowel, reaction to medications, pneumonia, blood clots, and even there is more chance of . The patient agreed to proceed with the procedure and informed consent was obtained. DESCRIPTION OF PROCEDURE: The patient was taken to the operating room and placed on the operating table in supine position. Following induction of general endotracheal anesthesia, both arms were tacked and the abdomen was prepped and draped in the usual sterile fashion. The patient had already received Invanz. Therefore, no additional preop antibiotics were needed. A formal time-out was performed. Then, the abdomen was accessed via a standard cut down method and Charisse trocar was placed. 10/30 laparoscope was inserted. The abdomen was inspected. There were no other abnormalities. Two additional 5 mm trocars were inserted; 1 in the prepubic area and other 1 in the left lower quadrant. Then, the appendix was located. The adhesions to the side wall were sharply dissected with scissors and the appendix was freed and elevated anteriorly. The appendiceal base was located using [place]. A window was made in the appendiceal base. Once this was done, we switched to a 5/30 camera and a 45 mm staple was placed on Endo JIM stapler, and the appendiceal base was stapled. Then, a white 45 mm load was also used to staple the mesoappendix. Then, the appendix was placed in an EndoCatch bag. The resected area was re-inspected. There were no signs of bleeding. The appendix was taken out. The umbilical fascia was closed in 2 layers, the fascia was closed with 0 Vicryl stitch, and the skin was closed with 4-0 Monocryl. The 5 mm trocars were closed in 1 layer just at the skin level with 4-0 Monocryl. The Dermabond was placed. This marked the end of the procedure. At the end of the procedure, all instruments, sharps, and sponges were counted and found to be correct x2. The patient was awoken from general anesthesia, extubated, and taken to the PACU in stable condition. The patient will go home later today if she is doing well and will follow up with me in 2 weeks for postop check. ANESTHESIA: MATY /[id number] [email or web address]
[2019-08-04] MEDS ORDERED: Acetaminophen/oxyCODONE 325-5 MG Tab PO PRN (12:23)
--- NOTE | 2019-08-08 12:55 | PCM.DCSUM1 ---
Discharge Summary - Hospital Course Free Text/Narrative:: Patient presented with acute appendicitis. She underwent a laparoscopic appendectomy. Diagnosis: Stroke: No - Discharge Data Discharge Date: 08/04/19 Discharge Disposition: Home, Self-Care 01 Condition: Good - Referral to Home Health Primary Care Physician: Tonya Cárdenas NP - Patient Summary/Data Consults: Consultations 08/03/19 21:32 Consult to Physician [CONS] Urgent - Patient Instructions Diet: Heart Healthy Diet Activity: No Lifting Over 20 Pounds (for 4 weeks) Driving: Do Not Drive (until after 24 hours post anesthesia) Showering/Bathing: May Shower (Pat incision dry. Do not remove skin glue) Wound/Incision Care: Keep Operative Site/Wound Site Clean and Dry Notify Provider of: Fever, Increased Pain, Swelling and Redness, Nausea and/or Vomiting - Discharge Plan *PRESCRIPTION DRUG MONITORING PROGRAM REVIEWED*: No (Tale stool softeners such as colace while taking opioid pain medications to avoid constipation) *COPY OF PRESCRIPTION DRUG MONITORING REPORT IN PATIENT LISA: No Prescriptions/Med Rec: Acetaminophen/oxyCODONE [Percocet 325-5 MG] 1 each PO Q6HR #12 tab Docusate Sodium [Colace] 100 mg PO BID #30 cap Home Medications: Home Meds Albuterol [IJP: Ventolin HFA] 1 puff INH .TWICE DAILY PRN 03/18/16 [History] Escitalopram [Lexapro] 20 mg PO BEDTIME 08/03/19 [History] Isomethept/Dichlphn/Acetaminop [Nntifqlnlt-Zsyyxmnpgu-Olupbyfi] 2 cap PO Q4HR PRN 08/03/19 [History] Promethazine [Phenergan] 1 tab PO Q6HR PRN 08/03/19 [History] Thyroid [[place] Thyroid] 120 mg PO DAILY 08/03/19 [History] hydrOXYzine HCl [Hydroxyzine HCl] 50 mg PO Q6HR PRN 08/03/19 [History] valACYclovir [Valtrex] 1,000 mg PO BID PRN 08/03/19 [History] Acetaminophen/oxyCODONE [Percocet 325-5 MG] 1 each PO Q6HR #12 tab 08/04/19 [Rx] Docusate Sodium [Colace] 100 mg PO BID #30 cap 08/04/19 [Rx] Oxygen Therapy Mode: Room Air Patient Handouts: Laparoscopic Appendectomy, Adult, Care After, Acetaminophen; Oxycodone tablets, Docusate capsules Referrals: Almaz Peace MD [Physician] - 08/17/19 3:30 pm (You will have a follow up appointment on August 17 at 3:[address] Peace at [facility]) - Discharge Summary/Plan Comment DC Time >30 min.: No (Due to pain control) Discharge Summary/Plan Comment: Follow up with me in clinic in 2weeks for post op check. Return to work/school as tolerated and when not taking Opioid pain medications. - General Info Date of Service: 08/04/19 Admission Dx/Problem (Free Text: Admission Diagnosis/Problem Admission Diagnosis/Problem Appendicitis Functional Status: Reports: Pain Controlled - Patient Data Vitals - Most Recent: Last Vital Signs Temp 97.9 F 08/04/19 08:15 Pulse 84 08/04/19 04:50 Resp 12 08/04/19 08:15 BP 106/65 08/04/19 08:15 Pulse Ox 95 08/04/19 08:15 Weight - Most Recent: 79.333 kg Med Orders - Current: Current Medications Discontinued Medications Albuterol (Proventil Neb Soln) 2.5 mg NEB ONETIME PRN PRN Reason: bronchodilation Dexamethasone (Dexamethasone) Confirm Administered Dose 20 mg .ROUTE .STK-MED ONE Stop: 08/04/19 05:11 Diatrizoate Meglum/Diatrizoate Sod (Gastrografin 37%) 120 ml PO ONETIME ONE Stop: 08/03/19 19:28 Last Admin: 08/03/19 20:55 Dose: 120 ml Diphenhydramine HCl (Benadryl) 25 mg IVPUSH ONETIME ONE Stop: 08/03/19 20:33 Last Admin: 08/03/19 20:43 Dose: 25 mg Diphenhydramine HCl (Benadryl) Confirm Administered Dose 50 mg .ROUTE .STK-MED ONE Stop: 08/04/19 06:07 Ephedrine Sulfate (Ephedrine Sulfate) 5 mg IVPUSH ASDIRECTED PRN PRN Reason: Hypotension Fentanyl (Sublimaze) Confirm Administered Dose 250 mcg .ROUTE .STK-MED ONE Stop: 08/04/19 05:12 Fentanyl (Sublimaze) 50 mcg IVPUSH Q5M PRN PRN Reason: Pain Glycopyrrolate () Confirm Administered Dose 1 mg .ROUTE .STK-MED ONE Stop: 08/04/19 06:33 Hydromorphone HCl (Dilaudid) 0.5 mg IVPUSH ONETIME ONE Stop: 08/03/19 18:27 Last Admin: 08/03/19 19:04 Dose: 0.5 mg Hydromorphone HCl (Dilaudid) 0.5 mg IVPUSH ONETIME ONE Stop: 08/03/19 20:36 Last Admin: 08/03/19 20:42 Dose: 0.5 mg Hydromorphone HCl (Dilaudid) 1 mg IVPUSH Q4H PRN PRN Reason: Pain Last Admin: 08/04/19 04:43 Dose: 1 mg Hydromorphone HCl (Dilaudid) Confirm Administered Dose 0.5 mg .ROUTE .ST-MED ONE Stop: 08/04/19 05:11 Hydromorphone HCl (Dilaudid) 0.5 mg IVPUSH Q15M PRN PRN Reason: Pain (severe 7-10) Sodium Chloride (Normal Saline) 1,000 mls @ 999 mls/hr IV ASDIRECTED [facility] Last Admin: 08/03/19 19:03 Dose: 999 mls/hr Ertapenem 1 gm/ Sodium (Chloride) 50 mls @ 100 mls/hr IV ONETIME ONE Stop: 08/03/19 22:00 Last Admin: 08/04/19 00:04 Dose: 100 mls/hr Sodium Chloride (Normal Saline) 1,000 mls @ 125 mls/hr IV ONETIME ONE Stop: 08/04/19 05:40 Last Admin: 08/04/19 00:13 Dose: Not Given Sodium Chloride (Normal Saline) 1,000 mls @ 125 mls/hr IV ASDIRECTED [facility] Last Admin: 08/03/19 23:30 Dose: 125 mls/hr Lidocaine HCl (Xylocaine-Mpf 1%) Confirm Administered Dose 6 mls @ as directed .ROUTE .STK-MED ONE Stop: 08/04/19 05:11 Lactated Ringer's (Ringers, Lactated) Confirm Administered Dose 2,000 mls @ as directed .ROUTE .STK-MED ONE Stop: 08/04/19 05:11 Phenylephrine HCl 1 mg/ Sodium (Chloride) 10.1 mls @ 1 mls/sec IV TITRATE MATTEO; Protocol Iopamidol (Isovue-300 (61%)) 100 ml IVPUSH ONETIME ONE Stop: 08/03/19 19:28 Last Admin: 08/03/19 20:55 Dose: 100 ml Ketorolac Tromethamine (Toradol) Confirm Administered Dose 30 mg .ROUTE .STK- MED ONE Stop: 08/04/19 05:11 Lidocaine HCl (Xylocaine-Mpf 1%) Confirm Administered Dose 30 ml .ROUTE .STK- MED ONE Stop: 08/04/19 05:45 Last Admin: 08/04/19 06:15 Dose: 25 ml Midazolam HCl (Versed 1 Mg/Ml) Confirm Administered Dose 2 mg .ROUTE .STK-MED ONE Stop: 08/04/19 05:12 Miscellaneous Information (Remove Patch) 1 ea TRDERM Q72H [facility] Stop: 08/07/19 05:46 Neostigmine Methylsulfate (Neostigmine) Confirm Administered Dose 5 mg .ROUTE .STK-MED ONE Stop: 08/04/19 06:33 Ondansetron HCl (Zofran) 4 mg IVPUSH ONETIME ONE Stop: 08/03/19 18:27 Last Admin: 08/03/19 19:03 Dose: 4 mg Ondansetron HCl (Zofran) 4 mg IVPUSH Q8H PRN PRN Reason: Nausea Last Admin: 08/04/19 04:47 Dose: 4 mg Ondansetron HCl (Zofran) Confirm Administered Dose 4 mg .ROUTE .STK-MED ONE Stop: 08/04/19 05:11 Ondansetron HCl (Zofran) 4 mg IVPUSH ONETIME PRN PRN Reason: Nausea/Vomiting Oxycodone/Acetaminophen (Percocet 325-5 Mg) 1 tab PO Q6H PRN PRN Reason: Pain Last Admin: 08/04/19 12:32 Dose: 1 tab Propofol (Diprivan 20 Ml) Confirm Administered Dose 200 mg .ROUTE .STK-MED ONE Stop: 08/04/19 05:12 Rocuronium [place] (Zemuron) Confirm Administered Dose 50 mg .ROUTE .STK-MED ONE Stop: 08/04/19 05:11 Scopolamine (Transderm-Scop) 1.5 mg TRDERM ONETIME ONE Stop: 08/04/19 05:33 Sodium Chloride (Saline Flush) 10 ml FLUSH ASDIRECTED [facility] Last Admin: 08/03/19 20:55 Dose: 10 ml - Exam General: Reports: Alert, Oriented, Cooperative Lungs: Reports: Clear to Auscultation GI/Abdominal Exam: Soft, No Organomegaly, No Distention, No Mass, Tender ( Appropriately tender to palpation) Discharge Operative/Procedures - Procedures Performed Operations: Laparoscopic appendectomy LP Indication: CSF analysis Arterial Line Indication: hemodynamic monitoring Chest Tube Indication: pneumothorax Thoracentesis Indication: pleural effusion Paracentesis Indication: ascites
== END 2019-08-04 14:39 | disposition home or self-care (01) ==
LOC: JD.ED 17:22 → UNDOADMOB 21:33 → JD.MS 21:33 → JD.SDS 21:39 → JD.MS 21:39 → UNDODISOB 08-04 14:39 → JD.SDS 08-04 14:39
PROVIDERS: ATTEND Surgery
DX: K35.33 Acute appendicitis with perforation, localized peritonitis, and gangrene, with abscess (principal); J45.909 Unspecified asthma, uncomplicated; E03.9 Hypothyroidism, unspecified; F41.9 Anxiety disorder, unspecified; Z88.0 Allergy status to penicillin; Z91.041 Radiographic dye allergy status; Z79.899 Other long term (current) drug therapy
CPT/HCPCS: 36415; 44970; 74177; 80053; 81001; 81025; 85007; 85027; 87086; 96361; 96374; 96375; 96376; 99285; A9270; J1100; J1170; J1200; J1335; J1885; J2001; J2250; J2405; J2704; J2710; J3010; J7040; J7050; J7120; Q9963; Q9967; 00840

== ENCOUNTER 2022-03-23 18:47 | Emergency (ER) | payer BC, OTHER ==
[2022-03-23 19:35] VITALS: BP 104/75; PULSE 107
[2022-03-23] MEDS ORDERED: Sodium Chloride 0.9% 1,000 ML IV SCH (20:15)
[2022-03-23] MEDS ORDERED: diphenhydrAMINE 50 MG/ML SDV IVPUSH ONE (21:22)
[2022-03-23] MEDS ORDERED: Alum Hydrox/Mag Hydrox/Simeth 30 ML, Lidocaine 2% 15 ML PO STA ×2 (22:55)
== END 2022-03-23 23:42 | disposition home or self-care (01) ==
LOC: JD.ED 18:47
DX: A08.4 Viral intestinal infection, unspecified (principal); K21.9 Gastro-esophageal reflux disease without esophagitis; E03.9 Hypothyroidism, unspecified; Z88.0 Allergy status to penicillin; Z91.041 Radiographic dye allergy status; Z79.899 Other long term (current) drug therapy; Z20.822 Contact with and (suspected) exposure to COVID-19
CPT/HCPCS: 36415; 74177; 80053; 81001; 83690; 83735; 84702; 85007; 85027; 87635; 96374; 99284; A9270; J1200; J7030; U0002

== ENCOUNTER 2023-03-17 06:42 | Inpatient (IN) | payer BC, OTHER ==
[~2023-03-17 06:42] MED LIST: Lactated Ringers 1,000 ML IV SCH; Lidocaine 1%/Sod Bicarbonate in NS 8.4% 1 ML Syringe IDERM PRN; Sodium Chloride 0.9% 10 ML Syringe FLUSH PRN
[2023-03-17 07:11] LABS: BASOPHILS ABSOLUTE AUTO 0.03 K/mm3 (0.01-0.08); BASOPHILS PERCENT AUTO 0.6 % (0.1-1.2); EOSINOPHILS PERCENT AUTO 3.7 (0.7-5.8); HEMATOCRIT 39.7 % (34.1-44.9); HEMOGLOBIN 13.1 gm/dl (11.2-15.7); LYMPHOCYTES PERCENT AUTO 42.2 % (19.3-51.7); MEAN CORPUSCULAR HEMOGLOBIN 30.3 pg (25.6-32.2); MEAN CORPUSCULAR VOLUME 91.9 fl (79.4-94.8); MEAN PLATELET VOLUME 10.3 fl (9.4-12.3); MONOCYTES ABSOLUTE AUTO 0.59 K/mm3 (0.24-0.36); MONOCYTES PERCENT AUTO 10.8 % (4.7-12.5); NEUTROPHILS ABSOLUTE AUTO 2.33 K/mm3 (1.56-6.13); NEUTROPHILS PERCENT AUTO 42.7 % (34.0-71.1); PLATELET COUNT,PLT 305 K/mm3 (182-369); RED BLOOD CELL COUNT 4.32 M/mm3 (3.98-5.22); WHITE BLOOD CELL COUNT,WBC 5.45 K/mm3 (3.98-10.04)
[2023-03-17] MEDS ORDERED: Ondansetron 4 MG/2 ML SDV ONE ×2 (07:24→08:15)
[2023-03-17] MEDS ORDERED: Rocuronium 50 MG/5 ML Vial ONE (07:24)
[2023-03-17] MEDS ORDERED: fentaNYL 250 MCG/5 ML SDV ONE (07:24)
[2023-03-17] MEDS ORDERED: Midazolam 1 MG/ML 2 ML SDV ONE (07:24)
[2023-03-17] MEDS ORDERED: Lidocaine 1% 5 ML VIAL ONE (07:24)
[2023-03-17] MEDS ORDERED: Propofol 200 MG/20 ML SDV ONE (07:24)
[2023-03-17 07:25] LABS: ANION GAP 12.3 (5-15); POTASSIUM,K 3.3 mEq/L (3.5-5.1)
[2023-03-17] MEDS ORDERED: ceFAZolin 2 GM Vial ONE (07:25)
[2023-03-17] MEDS ORDERED: Dexamethasone 4 MG/ML 5 ML MDV ONE (07:25)
[2023-03-17] MEDS ORDERED: Lidocaine 1% with EPINEPHrine 1:100,000 20 ML MDV ONE (07:28)
[2023-03-17] MEDS ORDERED: HYDROmorphone 0.5 MG/0.5 ML Syringe ONE ×3 (07:35→09:49)
[2023-03-17] MEDS ORDERED: fentaNYL 100 MCG/2 ML SDV IVPUSH PRN (07:39)
[2023-03-17] MEDS ORDERED: Ondansetron 4 MG/2 ML SDV IVPUSH PRN ×2 (07:39→11:44)
[2023-03-17] MEDS ORDERED: HYDROmorphone 0.5 MG/0.5 ML Syringe IVPUSH PRN (07:39)
[2023-03-17] MEDS ORDERED: Ketamine 500 mg/10 ML MDV ONE (08:14)
[2023-03-17] MEDS: Bupivacaine 0.5% 30 ML SDV ONE ×2 (08:30→12:58)
[2023-03-17] MEDS: Sodium Chloride 0.9% 50 ML SDV ONE ×2 (08:30→12:58)
[2023-03-17] MEDS ORDERED: Lactated Ringers 1,000 ML ONE ×2 (08:31→09:39)
[2023-03-17] MEDS ORDERED: ePHEDrine 50 MG/ML SDV ONE (08:49)
[2023-03-17] MEDS ORDERED: fentaNYL 100 MCG/2 ML SDV ONE (09:18)
[2023-03-17] MEDS ORDERED: Neostigmine Methylsulfate 10 MG/10 ML MDV ONE (10:11)
[2023-03-17] MEDS ORDERED: Ketorolac 30 MG/ML SDV ONE (10:16)
[2023-03-17] MEDS ORDERED: LORazepam 2 MG/ML SDV IVPUSH ONE (11:29)
[2023-03-17] MEDS ORDERED: Acetaminophen/oxyCODONE 325-5 MG Tab PO PRN (11:44)
[2023-03-17] MEDS: Sodium Chloride 0.9% 10 ML Syringe FLUSH SCH (12:46)
[2023-03-17] MEDS ORDERED: Ketorolac 30 MG/ML SDV IVPUSH PRN (16:00)
[2023-03-17] MEDS: Acetaminophen/oxyCODONE 325-5 MG Tab PO PRN ×2 (16:24→23:54)
[2023-03-18 05:56] LABS: BASOPHILS ABSOLUTE AUTO 0.01 K/mm3 (0.01-0.08); BASOPHILS PERCENT AUTO 0.1 % (0.1-1.2); EOSINOPHILS PERCENT AUTO 0 (0.7-5.8); HEMATOCRIT 30.5 % (34.1-44.9); IMMATURE GRAN ABSOLUTE AUTO 0.02 K/mm3 (0.00-0.10); IMMATURE GRAN PERCENT AUTO 0.2 % (<=1.0); LYMPHOCYTES ABSOLUTE AUTO 1.13 K/mm3 (1.18-3.74); LYMPHOCYTES PERCENT AUTO 8.9 % (19.3-51.7); MEAN CORPUSCULAR HEMOGLOBIN 30.2 pg (25.6-32.2); MEAN CORPUSCULAR HGB CONC 32.1 g/dl (32.2-35.5); MEAN CORPUSCULAR VOLUME 93.8 fl (79.4-94.8); MONOCYTES ABSOLUTE AUTO 1.39 K/mm3 (0.24-0.36); MONOCYTES PERCENT AUTO 10.9 % (4.7-12.5); NEUTROPHILS ABSOLUTE AUTO 10.18 K/mm3 (1.56-6.13); NEUTROPHILS PERCENT AUTO 79.9 % (34.0-71.1); PLATELET COUNT,PLT 249 K/mm3 (182-369); RED BLOOD CELL COUNT 3.25 M/mm3 (3.98-5.22); WHITE BLOOD CELL COUNT,WBC 12.73 K/mm3 (3.98-10.04)
[2023-03-18 06:02] LABS: HEMOGLOBIN 9.8 gm/dl (11.2-15.7)
[2023-03-18] MEDS: Acetaminophen/oxyCODONE 325-5 MG Tab PO PRN (06:35)
[2023-03-18] MEDS ORDERED: Calcium Carbonate 500 MG Tab.Chew PO PRN (07:27)
[2023-03-18 09:33] VITALS: BP 104/66; PULSE 77
== END 2023-03-18 08:50 | disposition home or self-care (01) | DRG 513 ==
LOC: JD.SDS 06:42 → JD.MS 12:08
PROVIDERS: ADMIT Obstetrics & Gynecology; ATTEND Obstetrics & Gynecology
PROC: 0UT90ZZ Resection of Uterus, Open Approach (ICD-10-PCS; principal; 2023-03-17)
PROC: 0UT70ZZ Resection of Bilateral Fallopian Tubes, Open Approach (ICD-10-PCS; 2023-03-17)
PROC: 0UTC0ZZ Resection of Cervix, Open Approach (ICD-10-PCS; 2023-03-17)
DX: N92.0 Excessive and frequent menstruation with regular cycle (principal); E03.9 Hypothyroidism, unspecified; F41.9 Anxiety disorder, unspecified; J45.909 Unspecified asthma, uncomplicated; Z90.49 Acquired absence of other specified parts of digestive tract; Z88.0 Allergy status to penicillin; Z88.8 Allergy status to other drugs, medicaments and biological substances; Z79.899 Other long term (current) drug therapy
CPT/HCPCS: 36415; 80051; 84703; 85025; 86850; 86900; 86901; A9270-GY; J0690; J1100; J1170; J1885; J2060; J2250; J2405; J2704; J2710; J3010; J3490; J7120